=== PATIENT | male | born 1960 | race Caucasian/White ===

== ENCOUNTER 2023-01-26 16:17 | Outpatient (REF) | payer OTHER, SELFPAY | END 2023-01-26 16:18 | disposition home or self-care (01) | LOC: HO.HOSX 16:17 | PROVIDERS: Visit Provider Physician Assistant | DX: Z13.89 Encounter for screening for other disorder (principal) ==

== ENCOUNTER 2023-01-28 15:22 | Outpatient (REF) | payer OTHER, SELFPAY ==
--- NOTE | ~2023-01-28 | XR_ITS ---
EXAMINATION: XR LUMBOSACRAL SPINE WITH OBLIQUES CLINICAL INFORMATION: Lumbago with sciatica. COMPARISON: None TECHNIQUE: AP and lateral views of the lumbar spine were obtained. Lateral views were obtained in flexion, extension, and neutral positions. FINDINGS: There is bony demineralization. There is a mild lumbar levoscoliosis. There have been prior posterior fusions extending from L2 through S1, with intact posterior fixator rods and pedicular screws extending from S2 through S4, L2-L3 through L5-S1 disc spacers, and S1 pedicular screws. The S1 pedicular screws appear fractured. A 7 mm anterolisthesis is seen at L3-L4. There is multi-level thoracolumbar spondylosis and facet arthropathy. The paravertebral soft tissues are unremarkable. XR/XR lumbar spine 4V min IMPRESSION: There is orthopedic hardware seen related to prior L2-S1 posterior fusions and discectomies. There are fractured pedicular screws at S1. A 7 mm anterolisthesis is noted L3-L4.
== END 2023-01-28 15:23 | disposition home or self-care (01) ==
LOC: HO.HOSX 15:22
PROVIDERS: Visit Provider Physician Assistant
DX: M54.40 Lumbago with sciatica, unspecified side (principal)
CPT/HCPCS: 72110